=== PATIENT | male | born 1930 | race African-American/Black ===

== ENCOUNTER 2016-06-19 13:53 | Emergency (ER) | payer OTHER | END 2016-06-19 14:03 | disposition left against medical advice (07) | LOC: ED 13:53 | DX: K59.00 Constipation, unspecified (principal) ==

== ENCOUNTER 2018-07-26 19:32 | Inpatient (IN) ==
[2018-07-26 21:15] LABS: URINE SOURCE CLEAN CATCH
[2018-07-26 21:19] LABS: BILIRUBIN URINE NEGATIVE (NEGATIVE); BLOOD URINE NEGATIVE (NEGATIVE); COLOR YELLOW; GLUCOSE URINE NEGATIVE (NEGATIVE); KETONE URINE NEGATIVE (NEGATIVE); LEUKOCYTES URINE NEGATIVE (NEGATIVE); NITRITE URINE NEGATIVE (NEGATIVE); PROTEIN URINE 100 mg/dL (NEGATIVE); SP GRAVITY URINE 1.015; TURBIDITY URINE CLEAR (CLEAR); UROBILINOGEN URINE 2 mg/dL (NORMAL)
[2018-07-26 21:20] LABS: UR EPITHELIAL CELLS <10 /HPF (<10); URINE BACTERIA NEGATIVE /HPF; URINE RBC <10 /HPF (<10); URINE WBC <10 /HPF (<10)
[2018-07-26 22:06] LABS: BASO# 0.06 X1000 (0.0-0.2); BASO% 0.6 % (0.0-0.8); EOS% 2.1 % (0.0-10.0); HEMATOCRIT 40.8 % (42.0-52.0); HEMOGLOBIN 13.5 g/dL (14.0-18.0); IMM GRAN# 0.05 X1000 (0.0-0.04); IMM GRAN% 0.5 % (0.0-0.5); LYMPH# 1.85 X1000 (1.2-3.4); LYMPH% 19.4 % (20.5-51.1); MCH 25.3 PG (27-31); MCHC 33.1 g/dL (33-37); MCV 76.4 FL (81-99); MONO# 1.16 X1000 (0.11-0.59); MONO% 12.2 % (1.7-9.3); MPV 10.1 FL (7.4-10.4); NEUT% 65.2 % (42.2-75.2); PLT 234 X1000 (130-400); RBC 5.34 XMIL (4.7-6.1); RDW 15.3 % (11.5-14.5); WBC 9.52 X1000 (4.8-10.8)
--- NOTE | 2018-07-26 22:14 | Diag Imaging Result Doc PS360 ---
CHEST-1 VIEW - 07/26/2018 INDICATION: chest pain COMPARISON: 07/16/2017 FINDINGS: The lungs are normally expanded and clear. Heart size and mediastinal contours are normal. No pneumothorax or pleural effusion. IMPRESSION: Negative exam. Electronically signed by Thomas Barron 07/26/2018 10:12 PM
[2018-07-26 22:43] LABS: AGAP 13; ALBUMIN 4.1 g/dL (3.5-5.0); ALKALINE PHOSPHATASE 93 U/L (32-122); BUN 17 mg/dL (8-22); CALCIUM 9.2 mg/dL (8.8-10.2); CHLORIDE 104 mmol/L (98-107); COSMO 284; CREATININE 1.3 mg/dL (0.7-1.2); ESTIMATED GFR > 60; GLUCOSE 92 mg/dL (70-104); GOT 27 U/L (10-34); GPT 12 U/L (10-44); POTASSIUM 3.8 mmol/L (3.5-5.1); SODIUM 142 mmol/L (136-145); TCO2 25 mmol/L (25-35); TOTAL BILIRUBIN 0.21 mg/dL (0.20-1.00); TOTAL PROTEIN 8.2 g/dL (6.3-8.3)
--- NOTE | 2018-07-26 23:33 | PROVIDER DOCUMENTATION ---
This chart was entered by Odette Aguayo Scribe, acting as scribe for Serjio Perez MD. HPI-Chest Pain - General Chief Complaint: Chest Pain Stated Complaint: (L) CHEST PAIN Time Seen by Provider: 07/26/18 19:58 Source: patient Allergies/Adverse Reactions: Patient Allergies Allergy/AdvReac Type Severity Reaction Status Date / Time No Known Allergies Allergy Verified 01/27/16 12:03 Home Medications: Home Medication List Medication Instructions Recorded Confirmed Last Taken Type Aspirin 325 mg PO DAILY 05/12/12 01/13/16 01/27/16 08:00 History Clopidogrel [Plavix] 75 mg PO DAILY 05/12/12 01/13/16 01/27/16 08:00 History [place]-3 Fatty Acids [Fish Oil] 1,000 mg PO DAILY 05/12/12 01/13/16 01/27/16 08:00 History Allopurinol 100 mg PO TID 12/12/13 01/13/16 01/13/16 History Amlodipine [Norvasc] 10 mg PO DAILY 01/13/16 01/13/16 01/27/16 08:00 History Iron Carbonyl/Ascorbic Acid 1 each PO BID #60 tablet 01/18/16 01/27/16 08:00 Rx [Icar-C] Pantoprazole [Protonix] 40 mg PO Q12H #60 vial 01/18/16 01/27/16 08:00 Rx Sucralfate [Carafate Liquid] 1 gm PO Q6HR #120 udc 01/18/16 01/27/16 08:00 Rx Ciprofloxacin HCl [Cipro] 500 mg PO BID #10 tablet 01/27/16 Unknown Rx Metronidazole [Flagyl] 500 mg PO TID #20 tablet 01/27/16 Unknown Rx Pantoprazole [Protonix] 40 mg PO DAILY@0700 #30 tablet 01/27/16 Unknown Rx Sucralfate [Carafate] 1 gm PO TID #90 tablet 01/27/16 Unknown Rx Ibuprofen [Motrin] 800 mg PO Q8H PRN PRN #20 tab 07/16/17 Unknown Rx Pantoprazole Sodium [Protonix] 40 mg PO DAILY #30 tablet. 07/16/17 Unknown Rx Tramadol/APAP [Ultracet 1 - 2 tab PO Q6H PRN PRN #20 tab 10/17/17 Unknown Rx 37.5MG/325Mg] - History of Present Illness-CP Nature of Presenting Problem: Pt is 87/m presenting to ED w/ cp on the R side of chest w/ dizziness and SOB and has been intermittent throughout the day and lasting 4-5 minutes. 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 Pt sts that he has not had a stress test of echocardiogram recently. Hx of HTN. Location: reports: substernal (R) Chest Pain Radiation: reports: no radiation Severity in ED: mild Onset/Duration: this morning Timing: still present Context/Activities at Onset: reports: none Modifying Factors: improves with: nothing Associated Symptoms: reports: shortness of breath Nitro Today/Relief: no nitro taken today Aspirin Treatment Today: no aspirin today Prior Chest Pain/Cardiac Workup: reports: other (Stents) Similar Symptoms Previously?: No Review of Systems - Adult - REVIEW OF SYSTEMS - ADULT Constitutional: reports: no symptoms reported Eyes: reports: no symptoms reported Ears, Nose, Mouth & Throat: reports: no symptoms reported Cardiovascular: reports: chest pain Respiratory: reports: shortness of breath. denies: cough Gastrointestinal: denies: nausea, vomiting Genitourinary: reports: no symptoms reported Musculoskeletal: reports: no symptoms reported Integumentary: reports: no symptoms reported Neurological: reports: no symptoms reported. denies: dizziness/vertigo, headache/migraines Psychiatric: reports: no symptoms reported Endocrine: reports: no symptoms reported Hematologic/Lymphatic: reports: no symptoms reported Allergic/Immunologic: reports: no symptoms reported All Other Systems: Reviewed and Negative Past History - Adult - PAST MEDICAL HISTORY-ADULT Review of Records: reports: Old Records Reviewed, Nursing Assessment Review, Medications Reviewed, Social history reviewed & non-contributory. Major Childhood Illnesses: reports: denies history Cardiovascular: reports: HTN, hyperlipidemia Respiratory: reports: COPD Gastrointestinal: reports: denies history Obstetrical/Gynecological: reports: denies history Genitourinary: reports: prostate cancer Musculoskeletal: reports: denies history Neurological: reports: CVA (left side deficit) Endocrine/Immune: reports: denies history Other Conditions: reports: denies history - PRIOR SURGERIES/PROCEDURES Surgical/Procedure History: reports: cardiac stent (x2), other (cataract remov al, TURP,) - IMMUNIZATION STATUS Childhood Immunizations: See Nurse Assessment Flu Vaccine: See Nurse Assessment - FAMILY HISTORY Family History: reviewed, not pertinent - SOCIAL HISTORY Smoking: denies, non-smoker Substance Use: none/never Alcohol Use Frequency: never Living Situation: family Physical Exam-General - PHYSICAL EXAM-ADULT Initial Vital Signs Reviewed: Yes - CONSTITUTIONAL General Appearance: appears well, alert, no apparent distress - EYES Eyes: PERRL/EOMI, pink conjunctivae - HEAD, EARS, NOSE, MOUTH & THROAT HENMT: normocephalic/atraumatic, moist mucous membranes, normal ENT inspection, TMs normal, pharynx normal - NECK Neck: non-tender, full range of motion, supple, normal inspection - RESPIRATORY Respiratory: lungs clear - CARDIOVASCULAR Cardiovascular: regular rate, rhythm - GASTROINTESTINAL (ABDOMEN) Abdominal Exam: normal bowel sounds, non tender, soft - LYMPHATIC Lymphatic: no adenopathy - MUSCULOSKELETAL Back Exam: normal inspection, no CVA tenderness, no vertebral tenderness Extremity: normal range of motion, non-tender, normal gait, normal inspection - SKIN Integumentary: normal color, warm/dry - NEUROLOGIC Neurologic: grossly normal - PSYCHIATRIC Psych/Mental Status: normal mood/affect, normal thought content, normal thought process, oriented x 3 Progress - PLAN OF CARE/RESULTS Progress/Plan/Lab Results: Vital Signs - 8 hr 07/26/18 19:49 Temperature 97.6 F Pulse Rate 95 H Respiratory Rate 18 Blood Pressure 193/75 O2 Sat by Pulse Oximetry 99 Laboratory Results - last 24 hr 07/26/18 07/26/18 07/26/18 21:01 21:45 21:45 WBC 9.52 RBC 5.34 Hgb 13.5 L Hct 40.8 L MCV 76.4 L MCH 25.3 L MCHC 33.1 RDW Std Deviation 15.3 H Plt Count 234 MPV 10.1 Immature Gran % (Auto) 0.5 Neut % (Auto) 65.2 Lymph % (Auto) 19.4 L [place] % (Auto) 12.2 H Eos % (Auto) 2.1 Baso % (Auto) 0.6 Immature Gran # (Auto) 0.05 H Neut # (Auto) 6.20 Lymph # (Auto) 1.85 [place] # (Auto) 1.16 H Eos # (Auto) 0.20 Baso # (Auto) 0.06 Sodium 142 Potassium 3.8 Chloride 104 Carbon Dioxide 25 Anion Gap 13 BUN 17 Creatinine 1.3 H Estimated GFR/1.73 m2 > 60 BUN/Creatinine Ratio 13 Glucose 92 Calculated Osmolality 284 Calcium 9.2 Total Bilirubin 0.21 AST 27 ALT 12 Alkaline Phosphatase 93 Troponin T Ppm-O-Ifoahecmigt Pept Total Protein 8.2 Albumin 4.1 Globulin 4.1 Albumin/Globulin Ratio 1.0 Urine Source CLEAN CATCH Urine Color YELLOW Urine Turbidity CLEAR Urine pH 6.0 Ur Specific [place] 1.015 Urine Protein 100 A Ur Glucose (Stick) NEGATIVE Ur Ketones (Stick) NEGATIVE Urine Blood NEGATIVE Urine Nitrite NEGATIVE Urine Bilirubin NEGATIVE Urobilinogen Dipstick 2 A Urine Leukocytes NEGATIVE Urine WBC (Auto) <10 Urine RBC (Auto) <10 U Epithel Cells (Auto) <10 Urine Bacteria (Auto) NEGATIVE 07/26/18 07/26/18 21:45 21:45 WBC RBC Hgb Hct MCV MCH MCHC RDW Std Deviation Plt Count MPV Immature Gran % (Auto) Neut % (Auto) Lymph % (Auto) [place] % (Auto) Eos % (Auto) Baso % (Auto) Immature Gran # (Auto) Neut # (Auto) Lymph # (Auto) [place] # (Auto) Eos # (Auto) Baso # (Auto) Sodium Potassium Chloride Carbon Dioxide Anion Gap BUN Creatinine Estimated GFR/1.73 m2 BUN/Creatinine Ratio Glucose Calculated Osmolality Calcium Total Bilirubin AST ALT Alkaline Phosphatase Troponin T < 0.010 Ssj-[id number]-[id number] Pept 111 Total Protein Albumin Globulin Albumin/Globulin Ratio Urine Source Urine Color Urine Turbidity Urine pH Ur Specific [place] Urine Protein Ur Glucose (Stick) Ur Ketones (Stick) Urine Blood Urine Nitrite Urine Bilirubin Urobilinogen Dipstick Urine Leukocytes Urine WBC (Auto) Urine RBC (Auto) U Epithel Cells (Auto) Urine Bacteria (Auto) Orders Category Date Time Status Nursing- Obtain EKG ONCE Care 07/26/18 21:33 Active cxr [CHEST-1 VIEW] [RAD] Stat Exams 07/26/18 21:34 Completed CBC WITH ELECTRONIC DIFF [HEME] Stat Lab 07/26/18 21:45 Completed COMPREHENSIVE METABOLIC PANEL [CHEM] Stat Lab 07/26/18 21:45 Completed PRO B-NATRIURETIC PEPTIDE Stat Lab 07/26/18 21:45 Completed TROPONIN T Stat Lab 07/26/18 21:45 Completed UA [URINALYSIS W/POSS RFLX CULT] [URINALYSIS] Stat Lab 07/26/18 21:01 Completed EKG [EKG] Stat Ther 07/26/18 19:35 Ordered Result Diagrams: 07/26/18 21:45 07/26/18 21:45 - EKG 1 Time of EKG reading by physician:: 19:42 EKG Read and Signed by:: Serjio Perez EKG Interpretation (*Must complete 3 of following elements*): Abnormal (normal sinus rhythm, Anterior infarct, age undetermined, abnormal ecg) Rate: 94 Rhythm: normal sinus Departure - Departure Date of Disposition Decision: 07/26/18 Time of Disposition Decision: 23:32 DIAGNOSIS: Chest pain Qualifiers: Chest pain type: other chest pain Qualified Code(s): R07.89 - Other chest pain; R07.8 - Other chest pain Disposition: ADMITTED INPATIENT 09 Certified Medical Emergency: Emergent Condition: Stable Referrals and Follow-Ups: Michelle Virk [Primary Care Provider] - - Critical Care Note This patient required my direct & personal management of CC.: No Attestation - Physician/ JESSE Attestation Patient care was provided by Advanced Practice Provider:: No The physician spent face to face time with patient:: Yes Advanced Practice Provider documentation review:: Supervising physician onsite and consulted in the evaluation and care of this patient. The physician did have a face to face encounter with the patient. This chart was documented by the indicated scribe, (Odette Aguayo, Scribe) and accurately reflects the services I performed and decisions made by me, Serjio Perez MD, as attested by the provider's signature.
[2018-07-27] MEDS ORDERED: TYLENOL PO PRN (02:39)
[2018-07-27] MEDS ORDERED: ZOFRAN IV PRN (02:39)
--- NOTE | 2018-07-27 04:17 | HISTORY AND PHYSICAL ---
PRIMARY CARE PHYSICIAN: Dr. Michelle Virk. CHIEF COMPLAINT: Chest pain. HISTORY: An 87-year-old male with a history of coronary disease, CVA, hypertension who had presented to emergency department with 2 to 3 days history of having intermittent chest pain. The patient described it as sharp and he was short of breath. He was evaluated in the emergency department. Due to his presenting symptoms, it was thought that we would place him for observation for further evaluation and management. At time of my examination, patient denied any headache, fever, chills, nausea, vomiting, diarrhea, hemoptysis, melena, or weight changes, but complained of chest pain, shortness of breath. PAST MEDICAL HISTORY: Includes hypertension, coronary artery disease, CVA. PAST SURGICAL HISTORY: Coronary artery stent, right carotid endarterectomy. ALLERGIES: No known drug allergies. MEDICATIONS: Current medications include allopurinol 100 mg p.o. b.i.d., amlodipine 10 mg p.o. daily, aspirin 325 mg p.o. daily, Plavix 75 mg p.o. daily, pantoprazole 40 mg p.o. daily, sucralfate 1 g p.o. t.i.d. SOCIAL HISTORY: He is a former smoker. No history of alcohol or illicit drug use. FAMILY HISTORY: No history of coronary artery disease. REVIEW OF SYSTEMS: Fourteen point review of systems as listed in HPI. Other systems negative. PHYSICAL EXAMINATION: GENERAL: Cooperative, friendly male. He is resting comfortably now. VITAL SIGNS: Temperature 97.6 degrees, pulse 95, respirations 18, blood pressure 193/75. HEENT: Atraumatic, normocephalic. Extraocular movements intact. PERRLA. NECK: Supple. CHEST: Clear to auscultation. CARDIOVASCULAR: Regular rate and rhythm. ABDOMEN: Soft. Positive bowel sounds. EXTREMITIES: No edema. NEUROLOGIC: He is awake, alert, oriented x3. GENITOURINARY: No bladder distention. SKIN: Warm. LABORATORIES AND STUDIES: WBCs 9.52, hemoglobin 13.5, hematocrit 40.8, platelets 234,000. Sodium 142, potassium 3.8, chloride 104, CO2 is 25, BUN 17, creatinine is 1.2, glucose is 92. Chest x- ray is negative. ASSESSMENT: This is an 87-year-old male with a history of hypertension, coronary artery disease, cerebrovascular accident, who had presented emergency department with 3 days history of having intermittent chest pain. He was evaluated in the emergency department. Due to his presenting symptoms, it was thought that we will place him for observation for further evaluation and management. 1. Chest pain. 2. Coronary artery disease. 3. Hypertension. PLAN: 1. We will admit patient to medical floor with telemetry. 2. We will continue cardiac workup. Check EKG, serial cardiac enzymes. Have patient continue on aspirin. We will use sublingual nitroglycerin and morphine p.r.n. chest pain. 3. We will consult Cardiology. 4. We will monitor blood pressure closely and resume antihypertensive agent. 5. Put patient on DVT prophylaxis with SCD. 6. We will continue to follow, and reassess and make further recommendations based on patient's clinical course. cc: John Ponce MD
[2018-07-27] MEDS ORDERED: ASPIRIN PO SCH (09:00)
[2018-07-27] MEDS: PRILOSEC PO SCH (10:51)
[2018-07-27] MEDS: APRESOLINE IV PRN ×2 (10:53→17:36)
--- NOTE | 2018-07-27 11:51 | EKG Report ---
Test Performed on : 07/27/2018 11:32:18 AM Test Reason : chest pain Blood Pressure : / mmHG Vent. Rate : 098 BPM Atrial Rate : 098 BPM P-R Int : 184 ms QRS Dur : 086 ms QT Int : 358 ms P-R-T Axes : 074 020 -22 degrees QTc Int : 457 ms Normal sinus rhythm. Anterior infarct (cited on or before 26-JUL-2018) Abnormal ECG When compared with ECG of 26-JUL-2018 21:56, (Unconfirmed) No significant change was found Confirmed by Manuela MALONE, Mark ([id number]) on 07/28/2018 9:00:41 AM
[2018-07-27] MEDS: COREG PO SCH ×2 (12:10→20:45)
[2018-07-27] MEDS: PLAVIX PO SCH (12:10)
[2018-07-27] MEDS: NORVASC PO SCH (12:10)
--- NOTE | 2018-07-27 12:14 | CARDIOLOGY CONSULTATION ---
DATE: 07/27/2018 IMPRESSION: 1. Episodic chest discomfort with mixed features, but predominantly atypical for myocardial ischemia. 2. Exertional dyspnea for several weeks. 3. Atherosclerotic coronary artery disease with previous coronary angioplasty/stenting above the right coronary artery. 4. Atherosclerotic coronary artery disease. Patient is status post angioplasty/stenting of the right coronary artery with drug-eluting stent in 2002. Last cardiac catheterization in 2009 demonstrated mild coronary atherosclerosis and preserved left ventricular systolic function. 5. Hypertension. 6. Previous cerebrovascular accident, 2007. 7. Atherosclerotic carotid disease. Patient is status post right carotid endarterectomy. 8. Peripheral vascular disease. 9. Previous cigarette use, discontinued 20 years ago. RECOMMENDATIONS: 1. Check D-dimer. Consider chest CT scan and venous Doppler if abnormal. 2. Lexiscan sestamibi study and echocardiography. 3. Adjust medical regimen to include beta vic for medical management of coronary atherosclerosis/angina. 4. Conservative cardiovascular management overall as permitted by clinical course. Certainly if he has significant ischemic burden on Lexiscan sestamibi study, coronary angiography would be pursued. HISTORY: This 87-year-old male with past history of atherosclerotic coronary disease as outlined above previous cerebrovascular accident, hypertension, atherosclerotic carotid disease, and peripheral vascular disease was admitted through the emergency room with episodic chest discomfort and exertional shortness of breath. He describes episodes of sharp central chest discomfort which he describes somewhat vaguely. He confirms that it is actually sharp and piercing in character and generally brief. He identifies no precipitating or relieving factors. Discomfort is not pleuritic nor positional. He has also had exertional shortness of breath for the past few weeks and has cut back on his physical activity. He has not had any orthopnea. He adds that the chest discomfort he has been recently experiencing is not like what he had prior to his coronary angioplasty/stent in the past. He has not smoked in over 20 years. PAST MEDICAL HISTORY: 1. Atherosclerotic coronary artery disease as outlined above. 2. Previous cerebrovascular accident in 2007. 3. Hypertension. 4. Peripheral vascular disease. 5. Atherosclerotic carotid disease. Patient is status post right carotid endarterectomy. 6. Gout. 7. Gastroesophageal reflux disease. 8. Hyperlipidemia. ALLERGIES: He has no known drug allergies. MEDICATIONS PRIOR TO ADMISSION: As listed. SOCIAL HISTORY: He quit smoking 20 years ago. He does not use alcohol. He is . FAMILY HISTORY: Negative for premature coronary disease. REVIEW OF SYSTEMS: Pulmonary: Negative for cough. He has had exertional shortness of breath. Gastrointestinal: Noncontributory beyond History of Present Illness. Constitutional: Noncontributory beyond History of Present Illness. Remainder of review of systems negative/noncontributory beyond History of Present Illness with 14 total systems reviewed. PHYSICAL EXAMINATION: This is a pleasant elderly male, in no distress. Blood pressure 181/58, heart rate 81, oxygen saturation 100%.HEENT: Extraocular movements appear to be intact. Mucous membranes moist. Neck is supple without jugular venous distention. There are no carotid bruits. Chest is clear to auscultation. Cardiac exam reveals a regular rate and rhythm without appreciable murmur, rub, gallop. Abdomen is soft. Bowel sounds are normal. Extremities are without edema. Neurologic exam reveals him to be alert and fully oriented. Speech is fluent. He moves all 4 extremities equally well. Skin is warm and dry. Psychiatric exam reveals his mood to be appropriate. DIAGNOSTIC STUDIES: A 12-lead EKG demonstrates normal sinus rhythm and abnormal precordial R-wave progression. Cannot exclude previous anteroseptal infarct. Lateral ST and T-wave abnormality demonstrated, consider lateral ischemia. Laboratory data includes a white blood cell count 9.52, hematocrit 40.8, hemoglobin 13.5, platelet count 234,000. Sodium 142, potassium 3.8, chloride 104, carbon dioxide 25, BUN 17, creatinine 1.3. Initial troponin T less than 0.01, follow-up troponin T less than 0.01, CPK 97. cc: Acosta Chin MD
[2018-07-27] MEDS ORDERED: LEXISCAN ONE (14:57)
--- NOTE | 2018-07-27 16:32 | Diag Imaging Result Document ---
PROCEDURE NAME: MYOCARDIAL PERF SCAN, STR/REST - 07/27/2018 LEXISCAN CARDIOLITE STRESS TEST: Lexiscan was infused per standard protocol. There was no chest pain. Stress electrocardiogram was negative for ischemia. Following Lexiscan infusion, Cardiolite was injected. 10.4 mCi of Cardiolite was injected for the rest phase. 31.2 mCi of Cardiolite was injected for the stress phase. Gated SPECT images were obtained in standard views. Images revealed normal revealed chest wall attenuation. There is normal myocardial perfusion. Left ventricular ejection fraction by gated SPECT was 71%. Normal left ventricular cavity size. CONCLUSIONS: 1. No chest pain. 2. Negative Lexiscan stress electrocardiogram. 3. Myocardial perfusion did not reveal any evidence of ischemia. 4. Left ventricular ejection fraction by gated SPECT was 71%. cc: MD Katie Turner PA
[2018-07-27] MEDS: LIPITOR PO SCH (20:45)
[2018-07-28 07:21] LABS: BASO# 0.04 X1000 (0.0-0.2); BASO% 0.5 % (0.0-0.8); EOS# 0.11 X1000 (0.0-0.7); EOS% 1.4 % (0.0-10.0); HEMATOCRIT 39.3 % (42.0-52.0); HEMOGLOBIN 12.9 g/dL (14.0-18.0); IMM GRAN# 0.05 X1000 (0.0-0.04); IMM GRAN% 0.6 % (0.0-0.5); LYMPH% 21.7 % (20.5-51.1); MCHC 32.8 g/dL (33-37); MCV 76.2 FL (81-99); MONO# 1.22 X1000 (0.11-0.59); MONO% 15.6 % (1.7-9.3); MPV 10.2 FL (7.4-10.4); NEUT% 60.2 % (42.2-75.2); PLT 224 X1000 (130-400); RBC 5.16 XMIL (4.7-6.1); RDW 15.4 % (11.5-14.5); WBC 7.82 X1000 (4.8-10.8)
[2018-07-28 07:37] LABS: INR 1.01; PROTIME 14.1 Seconds (11.0-16.0)
[2018-07-28] MEDS: PRILOSEC PO SCH (07:52)
[2018-07-28 08:04] LABS: AGAP 5; ALB/GLOB RATIO 0.8; ALBUMIN 3.5 g/dL (3.5-5.0); ALKALINE PHOSPHATASE 84 U/L (32-122); BUN 14 mg/dL (8-22); CALCIUM 9.2 mg/dL (8.8-10.2); CHLORIDE 100 mmol/L (98-107); COSMO 270; CREATININE 1.3 mg/dL (0.7-1.2); ESTIMATED GFR > 60; GLUCOSE 92 mg/dL (70-104); GOT 26 U/L (10-34); GPT 12 U/L (10-44); POTASSIUM 3.4 mmol/L (3.5-5.1); SODIUM 135 mmol/L (136-145); TCO2 30 mmol/L (25-35); TOTAL BILIRUBIN 0.64 mg/dL (0.20-1.00); TOTAL PROTEIN 7.7 g/dL (6.3-8.3)
[2018-07-28] MEDS: ASPIRIN PO SCH (08:11)
[2018-07-28] MEDS: NORVASC PO SCH (08:11)
[2018-07-28] MEDS: COREG PO SCH ×2 (08:11→21:30)
[2018-07-28] MEDS: PLAVIX PO SCH (08:12)
--- NOTE | 2018-07-28 09:21 | EKG Report ---
Test Performed on : 07/26/2018 7:42:59 PM Test Reason : cp Blood Pressure : / mmHG Vent. Rate : 094 BPM Atrial Rate : 094 BPM P-R Int : 206 ms QRS Dur : 078 ms QT Int : 344 ms P-R-T Axes : 051 000 119 degrees QTc Int : 430 ms Normal sinus rhythm. Anterior infarct , age undetermined Abnormal ECG When compared with ECG of 27-JAN-2016 13:48, aberrant conduction. is no longer present Unconfirmed Result
--- NOTE | 2018-07-28 09:23 | EKG Report ---
Test Performed on : 07/26/2018 9:56:54 PM Test Reason : CP Blood Pressure : / mmHG Vent. Rate : 077 BPM Atrial Rate : 077 BPM P-R Int : 196 ms QRS Dur : 082 ms QT Int : 386 ms P-R-T Axes : 045 011 003 degrees QTc Int : 436 ms Normal sinus rhythm. Anterior infarct (cited on or before 26-JUL-2018) Abnormal ECG When compared with ECG of 26-JUL-2018 19:42, (Unconfirmed) No significant change was found Unconfirmed Result
--- NOTE | 2018-07-28 17:02 | PROGRESS NOTE ---
DATE: 07/28/2018 SUBJECTIVE: Followed by Dr. Michelle Virk, presented with chest pain, an 87-year-old with history of coronary artery disease, CVA, hypertension, who presented to the emergency department with 2- to 3-day history of having intermittent chest pain. The patient described it as sharp and short of breath. Evaluated in the emergency department. Due to his presenting symptoms, we thought we would put him in to rule out angina. PAST MEDICAL HISTORY: Includes hypertension, coronary artery disease, CVA. PAST SURGICAL HISTORY: Coronary artery stent, right carotid endarterectomy so admitted with chest pain. LABORATORY: White count was 9520, hematocrit 40, platelet count 234,000. Troponin was less than 0.01, CK was [address] Chin saw him for consultation and felt he had episodic chest discomfort with mixed features, but predominantly atypical myocardial infarction. He has had some exertional dyspnea for several weeks. He has a history of atherosclerotic coronary artery disease with previous coronary angioplasty and stenting of the right coronary artery and status post angioplasty and stenting of the right coronary artery with drug-eluting stent in 2002. Last cardiac catheterization was 2009 and demonstrated mild coronary atherosclerosis, preserved left ventricular systolic function. The patient has a history of hypertension, previous cerebrovascular accident in 2007, atherosclerotic carotid disease, peripheral vascular disease, previous cigarette use. He stopped smoking 20 years ago. He has not had any further chest pain. Myocardial perfusion scan: No chest pain. Negative Lexiscan. Electrocardiogram: No evidence of new ischemia. Left ventricular ejection fraction was 71%, so the patient is feeling better, but still feels a little puny. REVIEW OF ORDERS: He is on Lipitor 40 mg at bedtime, Norvasc 5 mg a day, aspirin 81 mg a day, Coreg 6.25 mg b.i.d., Plavix 75 mg a day, Prilosec 20 mg a day. DISPOSITION: Hopefully, we can discharge him home tomorrow. cc: Shreyas Figueroa MD
--- NOTE | 2018-07-28 19:02 | PROGRESS NOTE ---
DATE: 07/28/2018 CARDIOLOGY FOLLOWUP NOTE: SUBJECTIVE: Patient continues without further chest discomfort. He has no dyspnea on room air. OBJECTIVE: Vital Signs: Blood pressure 187/68, heart rate 71 and regular. Oxygen saturation 99- 100% on room air. Neck: There is no significant jugular venous distention. Chest: Clear to auscultation bilaterally. Cardiac: Reveals a regular rate and rhythm without appreciable murmur or gallop. There is no evidence of peripheral edema. LABORATORY DATA: Includes a white blood cell count of 7.82, hematocrit 39.3, hemoglobin 12.9, platelet count 224,000. Sodium 135, potassium 3.4, chloride 100. Carbon dioxide 30, BUN 14, creatinine 1.3, initial troponin less than 0.01. Followup troponin less than 0.01. Lexiscan sestamibi study demonstrates no evidence of inducible myocardial ischemia. Left ventricular ejection fraction is 71%. IMPRESSION: 1. Recent episodic chest discomfort, predominantly atypical for myocardial ischemia. Stress myocardial perfusion imaging demonstrates no evidence of inducible myocardial ischemia. 2. Atherosclerotic coronary disease with previous coronary angioplasty/stenting to the right coronary artery. 3. Hypertension. 4. Previous cerebrovascular accident. RECOMMENDATIONS: 1. Continue medical management of patient's coronary atherosclerosis. It would be reasonable for him to go home soon. 2. Recent antihypertensive regimen adjusted to incorporate beta vic. Amlodipine reduced to 5 mg daily. Carvedilol initiated. Suggest increasing carvedilol further given elevated blood pressure. 3. Continue statin therapy for hyperlipidemia. cc: Acosta Chin MD
[2018-07-28] MEDS: LIPITOR PO SCH (21:28)
--- NOTE | 2018-07-28 23:45 | ECHO REPORT ---
ORDER DATE: 07/27/2018 MEASUREMENTS: Left ventricular end-diastolic diameter 4.2, end systolic diameter 2.4, septal thickness 1.1, posterior wall thickness 1.1, aortic root 2.5, left atrium 3.3 SUMMARY: 1. Fair quality study. Intravenous echo contrast agent, Optison, utilized to enhance endocardial definition. 2. Aortic valve is trileaflet and opens normally on 2-dimensional images. Peak gradient across aortic valve is 14 mmHg. There is trace aortic regurgitation. Mitral, tricuspid, and pulmonic valves are without evidence of structural abnormality with very mild mitral regurgitation and trace tricuspid regurgitation. The aortic root is normal size. 3. Normal left ventricular chamber size with mild concentric left hypertrophy suggested. Estimated left ejection fraction appears to be at least 65%. No regional wall motion abnormalities are evident. Doppler suggests grade 1 left ventricular diastolic dysfunction. Left atrium, right atrium, right ventricle are normal in size with grossly preserved right ventricular systolic function. 4. No pericardial effusion. 5. Appearance of inferior vena cava suggests normal central venous pressure. cc: MD Katie Kaminski PA
[2018-07-29] MEDS: APRESOLINE IV PRN (04:04)
[2018-07-29] MEDS: PRILOSEC PO SCH (06:34)
[2018-07-29 08:03] LABS: CHOLESTEROL 177 mg/dL (0-200); HDL 56 mg/dL (35-55); LDL 98 mg/dL; TRIGLYCERIDES 117 mg/dL (39-160); VLDL 23 mg/dL
[2018-07-29] MEDS: COREG PO SCH (08:07)
[2018-07-29] MEDS: PLAVIX PO SCH (08:07)
[2018-07-29] MEDS: ASPIRIN PO SCH (08:07)
[2018-07-29] MEDS: NORVASC PO SCH (08:07)
[2018-07-29 16:19] VITALS: BP 169/64
--- NOTE | 2018-07-29 17:18 | DISCHARGE SUMMARY ---
ADMISSION DATE: 07/27/2018 DISCHARGE DATE: 07/29/2018 HISTORY: He presented with chest pain. He is a patient of Dr. Michelle Virk. He is an 87-year-old male with a history of coronary artery disease, CVA, hypertension. Presented to the emergency department with a 2 to 3 day history of having intermittent chest pain. The patient described it as sharp and short of breath. Evaluated in the emergency room and due to the presenting symptoms, they put him in for evaluation and treatment. He did have risk factors. At the time of exam patient denied any headache, fever, chills, nausea, vomiting, diarrhea, hemoptysis, melena, or weight change, but complained of chest pain, shortness of breath. PAST MEDICAL HISTORY: 1. Hypertension. 2. Coronary artery disease. 3. CVA. PAST SURGICAL HISTORY: Coronary artery stent, right carotid endarterectomy. HOSPITAL COURSE: The patient had negative enzymes. EKG did not show suspicious ST-segment changes. His EKG showed normal sinus rhythm, poor R-wave progression anteroseptal leads, otherwise unremarkable. He had an echocardiogram done on 07/27/2018. Normal left ventricular size, ejection fraction 65%, no abnormal wall motion abnormality, no pericardial effusion. Myocardial perfusion scan 07/27 negative Lexiscan stress. EKG myocardial perfusion did not reveal any evidence of ischemia, left ventricular ejection fraction 71%. The patient had no further chest pain and felt he could go home. DISCHARGE MEDICATIONS: Norvasc 5 mg a day, aspirin 81 mg a day, Lipitor 40 mg a day, Coreg 12.5 mg b.i.d., Plavix 75 mg a day, Prilosec 20 mg a day. FOLLOW UP: He will follow up with his primary care physician in a couple weeks. cc: Shreyas Figueroa MD
== END 2018-07-29 18:02 | disposition home or self-care (01) | DRG 313 ==
LOC: ED 19:32 → 3N 19:32 → OBSVTOIN 07-27 01:03 → SUATTDRO 07-27 01:03
PROVIDERS: ATTEND Emergency Medicine
CPT/HCPCS: 71010; 71045; 78452; 80053; 80061; 81001; 82550; 83735; 83880; 84484; 85025; 85379; 85610; 93005; 93010; 93017; 93306; 94760; 94761; 99285; A9270; A9500; C8929; J0360; J2405; J2785; Q9957